=== PATIENT | male | born 1995 | race American Indian/Alaskan Native ===

== ENCOUNTER 2019-01-20 16:19 | Emergency (ER) | payer MEDICAID ==
--- NOTE | 2019-01-20 16:40 | Emergency Department Report ---
Chief Complaint: Nausea/Vomiting/Diarrhea Stated Complaint: FLU LIKE SYM Time Seen by Provider: 01/20/19 16:39 - HPI History of Present Illness: COLD SYMPTOMS FEVER BODY ACHES FLU SENT MSE COMPLETED NO CP NO SOB - Exam Vital Signs: Vital Signs 01/20/19 16:30 Temperature 99.5 F Pulse Rate 100 H Respiratory 16 Rate Blood Pressure 133/67 O2 Sat by Pulse 100 Oximetry MSE screening note: Focused history and physical exam performed. Due to findings the following was ordered: ED Disposition for MSE Condition: Stable
[2019-01-20] MEDS ORDERED: ZOFRAN ODT PO ONE (16:45)
[2019-01-20] MEDS ORDERED: TYLENOL PO ONE (16:45)
[2019-01-20] MEDS ORDERED: ZOFRAN IV ONE (19:28)
[2019-01-20] MEDS ORDERED: ALUM-MAG HYDROX-SIMETH 200-200-20MG/5ML PO ONE (19:28)
[2019-01-20] MEDS ORDERED: LIDOCAINE VISCOUS 2% PO ONE (19:28)
[2019-01-20] MEDS ORDERED: NACL 0.9% 1000 ML 1,000 ML IV ONE (19:28)
--- NOTE | 2019-01-20 19:28 | Emergency Department Report ---
ED N/V/D HPI - General Chief complaint: Nausea/Vomiting/Diarrhea Stated complaint: FLU LIKE SYM Time Seen by Provider: 01/20/19 16:39 Source: patient, family Mode of arrival: Ambulatory Limitations: Language Barrier - History of Present Illness Initial comments: This is a 23-year-old male here report that he was tested positive for influenza A yesterday. He said he was at his doctor's office and they put him on Tamiflu and told them that he feels has vomited that is uncontrolled and fever and feels worse to go to emergency room. He states that he is having body aches all over and nausea and vomited 7 times today. He said he taken Tylenol for his fever but it is not helping. Denies any diarrhea, back pain or abdominal pain. Denies any shortness of breath or chest pain. Pain is worse with movement and better with rest. MD complaint: nausea, vomiting, other (positive influenza since yesterday) Onset/Timin -: days(s) Description of Vomiting: food contents (and go) Associated Abdominal Pain: No (I forgot midline general home I note that obviously nobody else knows that) Radiation: none ( initially) Severity: severe Pain Scale: 7 Quality: aching (generalized) Consistency: constant Improves with: none Worsens with: movement Context: other (diagnosis acute influenza yesterday) Associated Symptoms: myalgias, cough, diaphoresis, fever/chills, malaise, nausea/vomiting. denies: chest pain, headaches, loss of appetite, rash, dysuria, shortness of breath, syncope, weakness - Related Data Previous Rx's Medication Instructions Recorded Last Taken Type Acetaminophen [Acetaminophen TAB] 500 mg PO Q6HR PRN #12 tablet 01/20/19 Unknown Rx Ondansetron [Zofran ODT TAB] 8 mg PO Q8HR PRN #16 tab.rapdis 01/20/19 Unknown Rx guaiFENesin/CODEINE [Robitussin AC] 10 ml PO Q8H PRN #150 oral.liqd 01/20/19 Unknown Rx Allergies Allergy/AdvReac Type Severity Reaction Status Date / Time aspirin Allergy Anaphylaxis Verified 01/20/19 16:23 ED Review of Systems ROS: Stated complaint: FLU LIKE SYM Other details as noted in HPI Constitutional: chills, fever, malaise Eyes: denies: eye discharge ENT: congestion. denies: ear pain, throat pain Respiratory: cough. denies: shortness of breath, SOB with exertion, wheezing Cardiovascular: denies: chest pain, palpitations, dyspnea on exertion, edema, syncope Gastrointestinal: nausea, vomiting. denies: abdominal pain, diarrhea, constipation, hematemesis, melena, hematochezia Genitourinary: denies: urgency, dysuria, frequency, hematuria Musculoskeletal: myalgia. denies: back pain, joint swelling, arthralgia Skin: denies: rash Neurological: denies: headache, weakness, numbness, paresthesias, abnormal gait, vertigo ED Past Medical Hx - Past Medical History Previous Medical History?: No - Surgical History Past Surgical History?: No - Family History Family history: no significant - Social History Smoking Status: Never Smoker Substance Use Type: None - Medications Home Medications: Home Medications Medication Instructions Recorded Confirmed Last Taken Type Acetaminophen [Acetaminophen TAB] 500 mg PO Q6HR PRN #12 tablet 01/20/19 Unknown Rx Ondansetron [Zofran ODT TAB] 8 mg PO Q8HR PRN #16 tab.rapdis 01/20/19 Unknown Rx guaiFENesin/CODEINE [Robitussin AC] 10 ml PO Q8H PRN #150 oral.liqd 01/20/19 Unknown Rx ED Physical Exam - General Limitations: Language Barrier General appearance: alert, in no apparent distress - Head Head exam: Present: atraumatic, normocephalic - Eye Eye exam: Present: normal appearance, PERRL, EOMI Pupils: Present: normal accommodation - ENT ENT exam: Present: normal exam, normal orophraynx, mucous membranes moist, TM's normal bilaterally, normal external ear exam - Neck Neck exam: Present: normal inspection, full ROM, other (no C-spine tenderness). Absent: tenderness, meningismus, lymphadenopathy - Respiratory Respiratory exam: Present: normal lung sounds bilaterally, other (dry cough). Absent: respiratory distress, wheezes, rales, rhonchi, stridor, chest wall tenderness, accessory muscle use, decreased breath sounds, prolonged expiratory - Cardiovascular Cardiovascular Exam: Present: regular rate, normal rhythm, normal heart sounds - GI/Abdominal GI/Abdominal exam: Present: soft, normal bowel sounds. Absent: distended, tenderness, organomegaly, mass - Extremities Exam Extremities exam: Present: normal inspection, full ROM, normal capillary refill, other (No cce. + 2 pulses in all extremities, no neurovascular compromise). Absent: tenderness, pedal edema, joint swelling, calf tenderness - Back Exam Back exam: Present: normal inspection, full ROM, other (ambulance without any difficulties). Absent: tenderness, CVA tenderness (R), CVA tenderness (L), muscle spasm, paraspinal tenderness, vertebral tenderness, rash noted - Neurological Exam Neurological exam: Present: alert, oriented X3, normal gait, reflexes normal. Absent: motor sensory deficit - Psychiatric Psychiatric exam: Present: normal affect, normal mood - Skin Skin exam: Present: warm, dry, intact, normal color. Absent: rash ED Course Vital Signs 01/20/19 01/20/19 01/20/19 16:30 18:25 19:25 Temperature 99.5 F Pulse Rate 100 H Respiratory 16 18 18 Rate Blood Pressure 133/67 Blood Pressure [Right] O2 Sat by Pulse 100 Oximetry 01/20/19 20:18 Temperature 98.8 F Pulse Rate 82 Respiratory 20 Rate Blood Pressure Blood Pressure 114/50 [Right] O2 Sat by Pulse 97 Oximetry - Reevaluation(s) Reevaluation #1: 01/20/19 17 patient given 1 g of Tylenol in triage area and Zofran 4 mg ODT. His temperature is stable and he said he is still nauseous.:20 Reevaluation #2: 01/20/19 22:21 Patient given 1 L of normal saline, IV fluid and Zofran 8 mg IV, Maalox 30 mL and lidocaine 15 mL by mouth. Patient said he is feeling a lot better his vital signs stable afebrile and is able to tolerate oral liquids. Influenza A positive be negative ED Medical Decision Making - Radiology Data Radiology results: report reviewed Chest x-ray dictated by radiologist and report reviewed by myself. Please see details below Findings [facility] [address] [place] [address] XRay Report Signed Patient: FARRUKH TAPIA MR#: [id number] : 1995 Acct:[id number] Age/Sex: 23 / M ADM Date: 01/20/19 Loc: ED Attending Dr: Ordering Physician: JUAN MANUEL PADILLA Date of Service: 01/20/19 Procedure(s): XR chest routine 2V Accession Number(s): [id number] cc: JUAN MANUEL PADILLA Fluoro Time In Minutes: FINAL REPORT EXAM: XR CHEST ROUTINE 2V HISTORY: cough, fever TECHNIQUE: Two view chest PA and lateral PRIORS: None. FINDINGS: Cardiac and mediastinal contours are unremarkable. No focal pulmonary infiltrate is identified. No pleural fluid collection seen. Pulmonary vasculature is unremarkable. IMPRESSION: Negative two-view chest Transcribed By: NEHEMIAH Dictated By: KI KUMAR MD Electronically Authenticated By: KI KUMAR MD Signed Date/Time: 01/20/192043 DD/ 42 TD/TT: 01/20/192042 - Medical Decision Making This is a 23-year-old male here report that he was in his primary care doctor's office yesterday and was diagnosed with influenza A and was given Tamiflu. He was told to go to the emergency room if he is having vomited and is not feeling better. Patient's hair and is influenza A and B tests done and positive for influenza A. Chest x-ray reveals no acute findings per radiology. Patient given IV fluid normal saline 1 L, Zofran IV, Tylenol 1 g by mouth, Maalox and lidocaine. He is feeling a lot better and I gave her results and influenza and x-ray. I told him to continue with is Chris Moore and he was given a prescription for guaifenesin with codeine, Tylenol and Zofran. Patient vital signs stable he is afebrile and in no acute distress. - Differential Diagnosis viral versus bacterial infection Critical care attestation.: If time is entered above; I have spent that time in minutes in the direct care of this critically ill patient, excluding procedure time. ED Disposition Clinical Impression: Influenza A virus present, Fever in adult, Cough in adult Disposition: DC-01 TO HOME OR SELFCARE Is pt being admited?: No Does the pt Need Aspirin: No Condition: Stable Instructions: Acute Cough (ED), Influenza (ED), Fever in Adults (ED) Additional Instructions: Please follow up with her primary care doctor in 2-3 days regarding influenza. If your symptoms worsens please return to the emergency room. Take Tylenol 500 mg every 6 hours to keep temperature down and prevent dehydration. Please drink at least 64 ounces of water daily to prevent dehydration Take guaifenesin with codeine for cough but please do not drive or operate heavy machinery while taking this medication Continue to take Tamiflu. Take Zofran ODT for nausea and/or vomiting You have the flu and he will need to rest your body for at least 5 days. This will enable your immune system to get back to normal. Referrals: your, primary care physician [Other] - 2-3 Days Forms: Work/School Release Form(ED)
[2019-01-20 20:19] VITALS: BP 114/50
--- NOTE | 2019-01-20 20:44 | XRay Report ---
FINAL REPORT EXAM: XR CHEST ROUTINE 2V HISTORY: cough, fever TECHNIQUE: Two view chest PA and lateral PRIORS: None. FINDINGS: Cardiac and mediastinal contours are unremarkable. No focal pulmonary infiltrate is identified. No pleural fluid collection seen. Pulmonary vasculature is unremarkable. IMPRESSION: Negative two-view chest
== END 2019-01-20 22:43 | disposition home or self-care (01) ==
LOC: ED 16:19
DX: J11.1 Influenza due to unidentified influenza virus with other respiratory manifestations (principal)
CPT/HCPCS: 71046; 87400; 96361; 96374; 99284; J2405; J7030; Q0162